=== PATIENT | female | born 1970 | race Two or more races ===

== ENCOUNTER 2023-12-30 09:51 | Emergency (ER) | payer SELFPAY ==
[2023-12-30 09:53] VITALS: BP 96/62; PULSE 110; RESP 22; TEMP 36.6; O2SAT 99
--- NOTE | 2023-12-30 10:12 | ED.VIS.BACK ---
HPI History of Present Illness Chief Complaint: Back Informant: patient and other (Friend who is also helping with interpreting.) Onset/Context/Timing Onset: Today and Yesterday Context: Gradual Onset Timing: Continuous Quality: Sharp and Aching Location: Thoracic Current Severity: Moderate Maximum Severity: Moderate Worsened by: improves with Movement Relieved by: Nothing Associated Symptoms Associated Symptoms: Negative for Numbness, Tingling, Radiation to Right Leg, Radiation to Left Leg, Fever, Abdominal Pain, Dysuria, Unable to Ambulate, Unable to Transfer, Urinary Retention, Urinary Incontinence, Constipation or Fecal Incontinence Narrative Narrative: 53-year-old female past medical history of hypothyroidism. Recently moved from [facility] to this area and currently has no primary care physician. States she has right upper back pain for the last 2 days. Worse with movement. Denies any fall injury or trauma. She works at a local convenience store. She denies any recent illness. She denies any headache, chest pain, shortness of breath or abdominal pain. She has no back history of prior back surgery. She has no known injury. Patient also wanted screening labs done and her thyroid checked since she has not had a physician for 6 months but remains taking her thyroid medication. Prior similar symptoms: No Recent Illness/Hospitalization: No PFSH PFSH Medical History no medical history Home Medications metaxalone 800 mg tablet 800 mg PO TID 7 days #21 tabs 12/30/23 [Rx Last Taken Unknown] Allergy/AdvReac Type Severity Reaction Status Date / Time No Known Allergies Allergy Verified 12/30/23 09:55 Family History no significant family his Surgical History no surgical history Social History Smoking Status: Heavy Smoker (>10/day) ROS ROS ED ROS Narrative Right upper back pain. No recent illness. No fever. No vomiting. No chest pain or shortness of breath. Review of Systems ROS Unobtainable: Denies due to encephalopathy Constitutional Constitutional ED: Denies chills or fever(s) Eyes Eyes: Denies blurry vision Cardiovascular Cardiovascular: Denies chest pain Respiratory/Chest Respiratory/Chest: Denies dyspnea Gastrointestinal Gastrointestinal: Denies abdominal pain, constipation, diarrhea, melena, nausea or vomiting Genitourinary Genitourinary ED: Denies dysuria or hematuria Musculoskeletal Musculoskeletal: Reports back pain and neck pain; Denies arthralgias or myalgias Integumentary Denies abscess or Abrasions Neurologic Neurologic: Denies headache(s) Psychiatric Psychiatric: Denies anxiety Endocrine Endocrinology: Denies cold intolerance Hematologic/Lymphatic Hematologic/Lymphatic: Denies easy bleeding Allergic/Immunologic Allergic/Immunologic ED: Denies mouth swelling, tongue swelling or urticaria EXAM Physical Exam Narrative Exam Narrative: Well-appearing 53-year-old female. Vital signs are stable afebrile. Her initial blood pressure is 96/62 she says at times it does run low. HEENT exam unremarkable. Moist mucous membranes. Neck she has the base of her right neck muscle spasm that is reproducibly tender. There is no redness or warmth. No lymphadenopathy. Lungs clear to auscultation. Heart tachycardic 105 no murmur. Chest wall and ribs nontender. Abdomen soft nontender. No peritoneal signs. Moving all 4 extremities. Neurovascular intact. 5 out of 5 high rigger strength. Normal range of motion both upper extremities. Normal dorsi plantarflexion in the lower extremities. Calves are nontender without edema. Back her right lateral neck and upper back behind her right shoulder there is reproducible muscle tenderness and pain consistent with muscle spasm. There is no discoloration or bruising. Left side is unremarkable. Neurologically she is awake and alert. Answering questions following commands. No focal motor deficits. Const Vital Signs: 12/30/23 09:53 12/30/23 10:40 Temperature 97.9 F Temperature Source Temporal Pulse Rate 110 H Respiratory Rate 22 H Blood Pressure 96/62 147/76 H Blood Pressure Mean 73 99 Pulse Ox 99 Oxygen Delivery Method Room Air Positive well nourished and well developed; Negative for cachectic, contractures or unkempt General Appearance ED: well developed and NAD; Negative for unkempt, cachectic, contractures or pallor Nutritional Appearance: Negative for cachectic HEENT Reports moist mucous membranes Negative for trauma or tenderness Eyes PERRL and EOMs intact bilaterally General Eye ED: Negative for pale conjunctiva or scleral icterus Neck no lymphadenopathy, supple and no JVD General: Negative for tenderness Thyroid: Negative for other Chest Wall Chest: Negative for other Resp normal respiratory effort and clear to auscultation bilaterally Effort and Inspection: Negative for pain with movement Auscultation: Negative for rales, rhonchi, wheezes or diminished lung sounds Cardio regular rhythm, S1 normal heart sound, S2 normal heart sound and no murmurs; Negative for regular rate Rate: tachycardic GI normal to inspection, nondistended, normoactive bowel sounds, soft to palpation, non-tender, non-distended and no masses Inspection: Negative for abdominal distention Auscultation: Negative for hyperactive bowel sounds Palpation: Negative for tender, guarding or rebound tenderness present Back/Spine Negative for normal to inspection or no thoracic nor lumbar tenderness Back/Spine Narrative: Right lateral neck and upper back muscular tenderness consistent with muscle spasm. Cervical Spine: Negative for cervical spine tenderness and paracervical muscle tenderness Thoracic Spine / Upper Back: paraspinal muscle tenderness Lumbar Spine / Lower Back: Negative for ROM limited or straight leg raise negative bilaterally Extremity normal to inspection and no clubbing, cyanosis or edema General Extremety ED: Negative for edema or tenderness General Extremity: Negative for edema Neuro oriented x3 and no sensory deficits noted Sensorium / Orientation: alert; Negative for confused Motor Exam: strength 5/5 throughout Psych mental status grossly normal Appearance: Negative for unkempt Attitude: No agitated Mood & Affect: Negative for depressed, sad or tearful Skin no rashes or lesions noted and no wounds General Skin Exam: Negative for jaundice or pallor Lesions: No lesion noted Rashes: No rashes noted Trauma: Negative for abrasion or puncture Wounds: Negative for wounds noted MDM MDM MDM Narrative Medical decision making narrative: 53-year-old female has upper back pain on the right consistent with myofascial spasm. Treated IV Toradol and Skelaxin p.o. I think this is clear-cut musculoskeletal pain. Patient moved from another area to this area has not had a primary care physician is requesting screening labs and a thyroid test because she is taking her thyroid medication. Otherwise I would not be getting labs. I do not believe she needs any imaging. The blood pressure will be rechecked. Repeat blood pressure is 147/76. Patient doing well repeat exam 1130. She will be given 1 [place] for pain. Again the pain is consistent with musculoskeletal right upper back pain consistent with muscle spasm. She is comfortable being discharged home. Skelaxin. Motrin and Tylenol for pain. Hot shower, warm bath and massage. Outpatient follow-up. History & Record Review Discussion w/independent historian: Patient Additional record(s) reviewed:: No prior records Lab Data Attestation: I reviewed the patient's lab results. Lab results narrative: CBC normal. White count of 5. H&H 13.5 and 41. Platelets 205. BMP unremarkable. Normal BUN and creatinine. Glucose 105. Her TSH was 2.9. Labs: Laboratory Results - last 24 hr 12/30/23 10:30 WBC 5.0 RBC 4.55 Hgb 13.5 Hct 41.5 MCV 91.2 MCH 29.7 MCHC 32.5 RDW Std Deviation 40.7 RDW Coeff of [place] 12.2 Plt Count 205 MPV 11.1 Immature Gran % (Auto) 0.400 Neut % (Auto) 60.3 Lymph % (Auto) 30.2 [place] % (Auto) 6.9 Eos % (Auto) 1.4 Baso % (Auto) 0.8 Absolute Neuts (auto) 3.0 Absolute Lymphs (auto) 1.50 Nucleated RBC % 0 Sodium 139 Potassium 4.4 Chloride 112 H Carbon Dioxide 27.0 Anion Gap 0 L BUN 9 Creatinine 0.53 L Estim Creat Clear Calc 131.32 Est GFR (MDRD) Af Amer 154 Est GFR (MDRD) Non-Af 127 BUN/Creatinine Ratio 16.9 Glucose 105 Calcium 9.1 TSH 2.93 Discharge Plan Triage Chief Complaint: Back ED Provider: Carlton Guerra Dx/Rx/DC Orders Clinical Impression: Back muscle spasm, History of hypothyroidism Instructions: ED Back Spasm, No Trauma Prescriptions: New metaxalone 800 mg tablet 800 mg PO TID 7 Days Qty: 21 0RF Primary Care Provider: Care Physician,No Primary Referrals: Andrew Jackson MD [Non-Staff] - 1-2 Weeks Care Physician,No Primary [Primary Care Provider] - Activity Restrictions/Additional Instructions: This is musculoskeletal back pain. Muscle spasm in your upper right back. Motrin for pain and inflammation. Tylenol for pain. Hot shower, warm bath and massage. The muscle relaxant Skelaxin 1 pill 3 times a day for a week. It will take several days to start working. Follow-up with a local doctor to get a primary care provider. Disposition Disposition: Home, Self Care
[2023-12-30 10:27] VITALS: BMI 30.7
[2023-12-30] MEDS: Ketorolac 30 MG/ML Syringe IV (10:36)
[2023-12-30] MEDS: Metaxalone 800 MG Tablet PO (10:37)
[2023-12-30 10:40] VITALS: BP 147/76
[2023-12-30 10:43] LABS: Basophil# 0.04 X10^3/uL; Basophil% 0.8 % (0-1); Eosinophil# 0.07 X10^3/uL; Eosinophils% 1.4 % (0-5); Hematocrit 41.5 % (37-47); Hemoglobin 13.5 g/dL (12.0-15.0); Lymphocyte % 30.2 % (19-41); Mean Corp Hgb Conc 32.5 g/dL (32-36); Mean Corpuscular Hgb 29.7 pg (27.0-32.0); Mean Corpuscular Volume 91.2 fL (81-99); Mean Platelet Vol. 11.1 fl (6.2-12.0); Monocyte# 0.34 X10^3/uL; Monocyte% 6.9 % (0-10); NRBC Flagged by Analyzer 0 % (0-5); Neutrophil # 2.99 X10^3/uL (2.7-7.7); Neutrophil % 60.3 % (47-70); Platelet Count 205 K/mm3 (150-450); RBC Distribution Width CV 12.2 % (11.6-14.6); RBC Distribution Width SD 40.7 fl (35.1-43.9); Red Blood Count 4.55 M/mm3 (4.2-5.4)
[2023-12-30 11:05] LABS: Anion Gap 0 (5-15); BUN 9 mg/dL (7-18); BUN/Creat Ratio 16.9 RATIO (10-20); Calcium,Total 9.1 mg/dL (8.5-10.1); Chloride 112 mmol/L (98-107); Creatinine, Serum 0.53 mg/dL (0.55-1.02); EST Glomerular Filtration Rate 127 mL/min (>60); Est Glom Filt Rate - Afr Amer 154 mL/min (>60); Estimated Creatinine Clearance 131.32 ml/min; Glucose 105 mg/dL (74-106); Potassium 4.4 mmol/L (3.5-5.1); Sodium Level 139 mmol/L (136-145); Thyroid Stim Hormone (TSH) 2.93 uIU/mL (0.358-3.74)
[2023-12-30] MEDS: morphine 10 MG/ML Syringe 8 MG IM (12:12)
[2023-12-30 12:17] VITALS: BP 128/75; PULSE 84; RESP 20; TEMP 36.6; O2SAT 99
== END 2023-12-30 12:48 | disposition home or self-care (01) ==
PROVIDERS: Emergency Provider Emergency Medicine; Visit Provider Emergency Medicine
DX: M62.830 Muscle spasm of back (principal); X58.XXXA Exposure to other specified factors, initial encounter; E03.9 Hypothyroidism, unspecified; F17.200 Nicotine dependence, unspecified, uncomplicated; Z79.899 Other long term (current) drug therapy
CPT/HCPCS: 80048; 84443; 85025; 96372; 96374; 99283; A4216